=== PATIENT | female | born 1985 | race African-American/Black ===

== ENCOUNTER 2022-07-14 06:23 | Emergency (ER) | payer BC, MEDICAID ==
[~2022-07-14] VITALS: Ht 170.2 cm; Wt 92.0 kg
[2022-07-14 06:34] VITALS: BP 125/90
[2022-07-14] MEDS ORDERED: IPRATROPIUM BROMIDE (0.02%) 0.5MG/2.5ML NEB HHN STA (08:18)
[2022-07-14] MEDS ORDERED: ALBUTEROL (0.083%) 2.5MG/3ML NEB HHN STA (08:18)
[2022-07-14 10:18] LABS: BASOPHILS % 0.4 % (0.0-2.0); EOSINOPHILS % 8.7 % (0.0-5.0); HEMATOCRIT. 39.7 % (36.0-48.0); HEMOGLOBIN. 12.8 g/dL (12.0-16.0); LYMPHOCYTES % 29.7 % (20.0-50.0); MEAN CORPUSCULAR HEMOGLOBIN 25.7 pg (28.0-32.0); MEAN CORPUSCULAR VOLUME 79.9 fL (81.0-99.0); MEAN PLATELET VOLUME 7.5 fl (7.4-10.4); MONOCYTES % 5.1 % (2.0-8.0); NEUTROPHILS % 56.1 % (40.0-76.0); PLATELET 366 x1000/uL (130-400); RED BLOOD CELL COUNT 4.98 mill/uL (4.2-5.4); RED CELL DISTRIBUTION WIDTH 15.6 % (11.6-14.6)
[2022-07-14 10:27] LABS: CHLORIDE 107 mEq/L (98-107)
[2022-07-14] MEDS ORDERED: AZIT500T8 MT (11:21)
[2022-07-14] MEDS ORDERED: ALBU6.7H9 INH (11:22)
== END 2022-07-14 11:46 | disposition home or self-care (01) ==
LOC: ER 06:23
DX: J40 Bronchitis, not specified as acute or chronic (principal)
CPT/HCPCS: 36415; 71046; 80053; 84702; 85025; 94640; 99285; Z7610